=== PATIENT | female | born 1985 | race Caucasian/White ===

== ENCOUNTER 2018-11-02 17:45 | Outpatient (CLI) | payer OTHER ==
[~2018-11-02] VITALS: Ht 172.7 cm; Wt 105.7 kg
[~2018-11-02 17:45] MED LIST: DOCU100C37 PO; IBUP-1780 PO; LABE200T7 PO; OXYC-465 PO; PREN1TAB76 PO; RANI150T46 PO; [UNRECOGNIZED DRUG - OTHER]; aldomet PO
[2018-11-02] MEDS ORDERED: [UNRECOGNIZED DRUG - OTHER] PO (18:21)
[2018-11-02] MEDS ORDERED: RANI150T46 PO (18:23)
[2018-11-02] MEDS ORDERED: ONDA8TAB6 PO (18:23)
[2018-11-02] MEDS ORDERED: CHOL100045 PO (18:23)
== END 2018-11-02 18:46 | disposition home or self-care (01) ==
LOC: WSo 17:45 → LDRP 17:45 → WSo 18:46
PROVIDERS: ATTEND Obstetrics & Gynecology
DX: O36.8120 Decreased fetal movements, second trimester, not applicable or unspecified (principal); Z3A.20 20 weeks gestation of pregnancy
CPT/HCPCS: 99212

== ENCOUNTER → 2019-02-17 | Outpatient (CLI) | payer OTHER ==
[~2019-02-17] MED LIST changes: +CHOL100045 PO; +ONDA8TAB6 PO; +[UNRECOGNIZED DRUG - OTHER] PO
== END ==
LOC: LABNPT 14:52
PROVIDERS: ATTEND Obstetrics & Gynecology
DX: O14.03 Mild to moderate pre-eclampsia, third trimester (principal)
CPT/HCPCS: 82570; 84156

== ENCOUNTER 2019-02-24 17:19 | Inpatient (IN) | payer OTHER ==
[~2019-02-24] VITALS: Ht 172.7 cm; Wt 108.4 kg
[2019-02-24] VITALS (7 sets, daily range): BP systolic 127–143; BP diastolic 76–83
--- NOTE | 2019-02-24 17:15 | NUR ---
APRYL LEAL presented to unit via ambulatory from office, accompanied by , with c/o CONTRACTIONS. APRYL LEAL weighed, gowned, voided, and to bed. EFHM and TOCO applied, VS taken. APRYL LEAL oriented to bed controls, call light, TV, heat, and A/C controls.
--- NOTE | 2019-02-24 17:35 | NUR ---
DR SIMENTAL CALLED BY THIS RN WITH PT REPORT. PT CO FEELING UNCOMFORTABLE WITH UC AND CONSTANT PRESSURE IN GENERAL. PT HAD BEEN SVE IN OFFICE AND WAS CLOSED. PT ABD TENDER TO TOUCH. THIS RN REPORT UC PATTERN, REACTIVE FHT. ORDERS RECEIVED FOR IV, CMP,CBC,LDH, START D5LR AT 150.
--- NOTE | 2019-02-24 17:40 | NUR ---
THIS RN BUSY WITH OTHER PT. REPORT GIVEN TO ADELITA THOMAS. MARTHA THOMAS TAKE OVER CARE ON PT AT THIS TIME.
[2019-02-24] MEDS ORDERED: D5 LR IV SOLUTION 1,000 ML IV ONE (17:41)
[2019-02-24] MEDS ORDERED: D5 LR IV SOLUTION 1,000 ML IV SCH ×2 (17:45→19:35)
[2019-02-24 18:17] LABS: BASOPHILS % (AUTO) 0 % (0-10); EOSINOPHILS # (AUTO) 0.1 10^3/uL (0.0-0.3); EOSINOPHILS % (AUTO) 1 % (0-10); HEMATOCRIT 37 % (35-52); HEMOGLOBIN 12.3 G/DL (11.5-16.0); LYMPHOCYTES # (AUTO) 1.8 X 10^3 (1.0-4.0); LYMPHOCYTES % (AUTO) 20 % (12-44); MEAN CORPUSCULAR HEMOGLOBIN 31 PG (25-34); MEAN CORPUSCULAR HGB CONC 33 G/DL (32-36); MEAN CORPUSCULAR VOLUME 94 FL (80-99); MEAN PLATELET VOLUME 12.4 FL (7.4-10.4); MONOCYTES # (AUTO) 0.6 X 10^3 (0.0-1.0); MONOCYTES % (AUTO) 7 % (0-12); NEUTROPHILS # (AUTO) 6.3 X 10^3 (1.8-7.8); NEUTROPHILS % (AUTO) 72 % (42-75); PLATELET COUNT 269 10^3/uL (130-400); RED CELL DISTRIBUTION WIDTH 13.3 % (10.0-14.5); WHITE BLOOD COUNT 8.7 10^3/uL (4.3-11.0)
--- NOTE | 2019-02-24 18:31 | History & Physical ---
History and Physical Date Seen by Provider: Feb 24, 2019 Time Seen by Provider: 18:27 This patient is a 33-year-old white female who was previously delivery was a . Her is complicated by gestational diabetes that is well controlled with diet. Her blood pressures have been elevated however she has not reached that threshold for definitive diagnosis of preeclampsia. She complains of severe abdominal pain. She is having somewhat irregular contractions. She denies rupture membranes or bleeding. Allergies are none Medications are vitamins Medical social and surgical histories are per the antepartum record HEENT exam is normal patient does appear uncomfortable Neck is supple no lymphadenopathy no thyromegaly Abdomen is gravid soft. It is exquisitely tender across the fundus and lower abdomen Show no clubbing or cyanosis. There is fairly notable pretibial pitting edema. There is no Homans sign. Pelvic exam is deferred Laboratory Tests Test 02/24/19 18:05 Range/Units White Blood Count 8.7 4.3-11.0 10^3/uL Red Blood Count 3.97 L 4.35-5.85 10^6/uL Hemoglobin 12.3 11.5-16.0 G/DL Hematocrit 37 35-52 % Mean Corpuscular Volume 94 80-99 FL Mean Corpuscular Hemoglobin 31 25-34 PG Mean Corpuscular Hemoglobin Concent 33 32-36 G/DL Red Cell Distribution Width 13.3 10.0-14.5 % Platelet Count 269 130-400 10^3/uL Mean Platelet Volume 12.4 H 7.4-10.4 FL Neutrophils (%) (Auto) 72 42-75 % Lymphocytes (%) (Auto) 20 12-44 % Monocytes (%) (Auto) 7 0-12 % Eosinophils (%) (Auto) 1 0-10 % Basophils (%) (Auto) 0 0-10 % Neutrophils # (Auto) 6.3 1.8-7.8 X 10^3 Lymphocytes # (Auto) 1.8 1.0-4.0 X 10^3 Monocytes # (Auto) 0.6 0.0-1.0 X 10^3 Eosinophils # (Auto) 0.1 0.0-0.3 10^3/uL Basophils # (Auto) 0.0 0.0-0.1 10^3/uL UA showed specific gravity 1.030. There was protein noted monitor shows contractions every 2-6 minutes Assessment and plan 36-6/7 weeks' gestation patient may be in early labor who has had a previous . She also is diabetic and abnormal abdominal exam. She is being hydrated. Her white blood cell count was normal. We will continue observation with the hydration if her symptoms significantly improved and we will continue observation through the night. If she does not show improvement with likely would proceed with repeat . 36-6/7 weeks' gestation with previous , gestational diabetes, severe abdominal pain Allergies and Home Medications Allergies Coded Allergies: No Known Drug Allergies (Unverified , 08/17/15) Home Medications Cholecalciferol (Vitamin D3) 1,000 Unit Tablet, 1,000 UNIT PO DAILY, (Reported) Docusate Sodium 100 Mg Capsule, 100 MG PO BID Prescribed by: MASTER ARREOLA on 10/08/15 0954 Ondansetron HCl 8 Mg Tablet, 8 MG PO Q20M, (Reported) Ranitidine HCl 150 Mg Tablet, 150 MG PO BID PRN, (Reported) [bariatric mv] , 1 TAB PO DAILY, (Reported) Patient Home Medication List Home Medication List Reviewed: Yes MASTER SIMENTAL MD Feb 24, 2019 18:31
[2019-02-24 18:35] LABS: LYMPHOCYTES % (MANUAL) 27 %; MONOCYTES % (MANUAL) 3 %; NEUTROPHILS % (MANUAL) 70 %; RBC MORPH NORMAL
[2019-02-24 18:40] LABS: ALANINE AMINOTRANSFERASE 13 U/L (0-55); ALBUMIN 3.4 GM/DL (3.2-4.5); ALKALINE PHOSPHATASE 118 U/L (40-136); BILIRUBIN,TOTAL 0.5 MG/DL (0.1-1.0); BUN/CREATININE RATIO 15; CALCIUM 9.2 MG/DL (8.5-10.1); CARBON DIOXIDE 16 MMOL/L (21-32); CHLORIDE 110 MMOL/L (98-107); CREATININE SERUM 0.68 MG/DL (0.60-1.30); GFR ESTIMATED > 60; GLUCOSE 107 MG/DL (70-105); POTASSIUM 3.6 MMOL/L (3.6-5.0); SODIUM 137 MMOL/L (135-145); TOTAL PROTEIN 6.5 GM/DL (6.4-8.2)
--- NOTE | 2019-02-24 19:10 | NUR ---
PT REPORT GIVEN TO MARIA DOLORES RN. MARTHA THOMAS IN OR WITH ANOTHER PT.
--- NOTE | 2019-02-24 19:26 | NUR ---
DR SIMENTAL AT BEDSIDE TO EVALUATE PT. THIS RN GIVES UPDATE REPORT ON LABS.
[2019-02-24] MEDS ORDERED: METOCLOPRAMIDE INJ 10 MG/2 ML (REGLAN) ONE (19:35)
[2019-02-24] MEDS ORDERED: CITRIC ACID/SOB CIT (BICITRA) 30 ML UDC ONE (19:35)
[2019-02-24] MEDS ORDERED: ceFAZolin 2 GM IV Premixed 50 ML ONE (19:36)
[2019-02-24] MEDS ORDERED: LACTATED RINGERS 1,000 ML IV ONE (19:36)
[2019-02-24] MEDS ORDERED: FAMOTIDINE 20MG/2ML IV (PEPCID) ONE (19:36)
[2019-02-24] MEDS ORDERED: OXYTOCIN/NORMAL SALINE 500 ML IV SCH (19:38)
--- NOTE | 2019-02-24 19:40 | NUR ---
LR BOLUS INITIATED. ANESTHESIA AT BEDSIDE.
[2019-02-24] MEDS ORDERED: ONDANSETRON 4 MG/2 ML (SDV) Z0FRAN IVP PRN (19:45)
[2019-02-24] MEDS ORDERED: TETANUS,DIPTH,PERTUSS P/F (BOOSTRIX) 0.5 ML VIAL IM SCH (19:45)
[2019-02-24] MEDS ORDERED: metroNIDAZOLE 500MG/100ML IVPB 100 ML IV ONE (19:45)
[2019-02-24] MEDS ORDERED: ceFAZolin INJECTION 2,000 MG in WATER (STERILE) FOR INJECTION 10 ML IV ONE (19:45)
[2019-02-24] MEDS ORDERED: BUTORPHANOL INJ 2 MG/ML (STADOL) VIAL IV PRN (19:45)
[2019-02-24] MEDS ORDERED: MEASLES,MUMPS,RUBELLA 1 EA INJ SC SCH (19:45)
[2019-02-24] MEDS ORDERED: OXYC1TAB12 PO (19:47)
[2019-02-24] MEDS ORDERED: IBUP-1780 PO (19:47)
[2019-02-24] MEDS ORDERED: DOCU100C37 PO (19:47)
[2019-02-24] MEDS ORDERED: fentaNYL INJECTION 100 MCG/2 ML AMP ONE (19:49)
[2019-02-24] MEDS ORDERED: ONDANSETRON 4 MG/2 ML (SDV) Z0FRAN ONE (19:49)
[2019-02-24] MEDS ORDERED: PHENYLEPHRINE 100 MCG/ML 10 ML (ANESTHESIA) SYR ONE (19:49)
--- NOTE | 2019-02-24 19:49 | Discharge Instructions ---
Discharge Instructions Discharge Medications New, Converted or Re-Newed RX: RX on Chart Patient Instructions Patient Instructions: As directed Return to The Hospital For: DIRECTED Activity & Diet Discharge Diet: No Restrictions Activity as Tolerated: No Orders-Post D/C & Referrals Follow Up Appt: RTC 1 week for incision check. Call to make follow up appt. for patient in 4 weeks. Wound Care: Remove mustapha, apply benzoin and steri strips. Activity Per routine post instructions. Diet as tolerated Patient may shower or tub bathe as desired. Continue home meds MASTER SIMENTAL MD Feb 24, 2019 19:49
[2019-02-24] MEDS ORDERED: BUPIVACAINE SPINAL 0.75% (SENSORCAINE) 2 ML AMP ONE (19:52)
--- NOTE | 2019-02-24 19:55 | NUR ---
PREOP MEDS GIVEN PER ORDERS.
--- NOTE | 2019-02-24 20:05 | NUR ---
EFM D/C'D. PT ALLOWED TO VOID AND THEN AMBULATORY TO OR AT THIS TIME. CARES TO OR CREW.
[2019-02-24] MEDS ORDERED: BUPIVACAINE 0.5% 30 ML (SENSORCAINE) VIAL ONE (21:12)
[2019-02-24] MEDS ORDERED: diphenhydrAMINE 50 MG/ML INJ (BENADRYL) IV PRN (21:30)
[2019-02-24] MEDS ORDERED: NALOXONE 0.4 MG/ML 1 ML (NARCAN) VIAL IV PRN (21:30)
[2019-02-24] MEDS ORDERED: ONDANSETRON 4 MG/2 ML (SDV) Z0FRAN IV PRN (21:30)
[2019-02-24] MEDS: KETOROLAC 30 MG/ML VIAL IV SCH (21:38)
[2019-02-24] MEDS: DOCUSATE SODIUM 100 MG (COLACE) CAP PO SCH (22:10)
--- NOTE | 2019-02-24 22:10 | NUR ---
PT TO 306 BY BED FROM RECOVERY. PT IN STABLE CONDITION. REPORT RECEIVED AND CARES RESUMED BY THIS NURSE.
[2019-02-25] MEDS ORDERED: METOCLOPRAMIDE INJ 10 MG/2 ML (REGLAN) IV ONE
[2019-02-25] MEDS ORDERED: CITRIC ACID/SOB CIT (BICITRA) 30 ML UDC PO ONE
[2019-02-25] MEDS ORDERED: LACTATED RINGERS 1,000 ML IV SCH
[2019-02-25] MEDS ORDERED: FAMOTIDINE 20MG/2ML IV (PEPCID) IVP ONE
[2019-02-25] MEDS: oxyCODONE/APAP 10/325MG (PERCOCET 10) TABLET PO PRN ×5 (00:25→21:07)
[2019-02-25] MEDS: KETOROLAC 30 MG/ML VIAL IV SCH (01:45)
--- NOTE | 2019-02-25 02:11 | OPERATIVE REPORT ---
DATE OF SERVICE: 02/24/2019 PREOPERATIVE DIAGNOSIS: A 36 and 6/7 weeks' gestation with labor, polyhydramnios and severe abdominal pain. POSTOPERATIVE DIAGNOSIS: A 36 and 6/7 weeks' gestation with labor, polyhydramnios and severe abdominal pain with partial uterine incision separation. OPERATIVE PROCEDURE: Repeat low transverse delivery of a viable male with Apgars of 6 and 8 at 1 and 5 minutes respectively, weight 6 pounds 6 ounces, time of 2040 and a cord blood pH that is pending. OPERATIVE DESCRIPTION: With the patient in the supine position under satisfactory spinal anesthesia, she was prepped and draped in usual fashion for abdominal surgery. Burton catheter was placed in the urinary bladder. A Pfannenstiel incision made through the skin with a scalpel through the patient's previous Pfannenstiel incision scar. The abdomen was entered in the usual manner. Bladder retractor placed into position and a clean scalpel was used to make a 4 cm hysterotomy incision transversely across the lower uterine segment in an area that was almost paperthin comprised primarily of peritoneum and membranes. The membranes were bulging up through the myometrium. Membranes were ruptured in the process. Copious clear fluid was released. The incision was extended transversely by a blunt dissection. A vigorous viable male was delivered via the uterine incision with fundal pressure. The infant had Apgars and stats as noted above. Infant had a single nuchal cord that was easily released and then the delivery completed. The was bulb suctioned on delivery of the head and again on completion of delivery. Umbilical cord was doubly clamped and severed and the passed to the pediatric nurse in attendance for delivery. Cord bloods were obtained. The placenta delivered spontaneously Velasquez. It was normal with a 3-vessel cord. It was sent to pathology for permanent section. Uterus was exteriorized and interior wiped clean with a wet laparotomy sponge. Uterine incision was closed with running locked suture of 2-0 Vicryl. Hemostasis was complete. The uterus was returned to abdominal cavity. All blood, clot and debris removed from the abdominal cavity. With sponge and needle counts correct, hemostasis assured, the anterior parietal peritoneum was closed with running suture of 2-0 Vicryl. Rectus muscles were closed with that suture as well. The rectus fascia was closed with 2-0 Vicryl, subcutaneous tissue with 2-0 Vicryl and the skin was stapled. Sponge and needle counts were correct on completion of the procedure. Estimated blood loss was around 700 mL. The patient tolerated the procedure well and was transferred to the recovery room in stable condition. The infant had been taken stable to the full term nursery under the care of the pediatric nurse. Job ID: [id number] DocumentID: [id number] Dictated Date: 02/24/2019 21:20:59 Ruby Engineer Date: 02/25/2019 02:10:47 Dictated By: MASTER SIMENTAL MD MTDD
[2019-02-25 02:50] VITALS: BP 153/96
--- NOTE | 2019-02-25 07:40 | NUR ---
DR. SIMENTAL HERE TO SEE PT.
[2019-02-25] MEDS: DOCUSATE SODIUM 100 MG (COLACE) CAP PO SCH ×2 (07:58→19:51)
[2019-02-25 08:00] VITALS: BP 146/84
[2019-02-25] MEDS ORDERED: IBUPROFEN 800 MG (MOTRIN) TAB PO SCH (08:00)
--- NOTE | 2019-02-25 08:00 | NUR ---
A.M. ASSESSMENT COMPLETED. VSS. AND S.O. AT BEDSIDE.
--- NOTE | 2019-02-25 08:05 | Progress Note-Standard ---
Standard Progress Note Progress Notes/Assess & Plan Date Seen by a Provider: Feb 25, 2019 Time Seen by a Provider: 08:04 Progress/Assessment & Plan This patient is without complaint. She is ambulating, voiding, tolerating liquids well has good pain control. Patient denies chest pain, denies shortness of breath, denies nausea vomiting, denies headache. Vital Signs 02/24/19 02/25/19 23:10 02:50 Temp 98.7 Pulse 74 Resp 18 B/P (MAP) 153/96 (115) Pulse Ox 99 O2 Delivery Room Air Signs are stable. Patient afebrile. Fundus is firm below the umbilicus and nontender. The surgical incision is clean dry and intact. Extremities show no clubbing cyanosis. There is no Homans sign. Assessment and plan postoperative day number 1 status post repeat delivery at 36-6/7 weeks' gestation. Plan is for routine convalescence. MASTER SIMENTAL MD Feb 25, 2019 08:05
--- NOTE | 2019-02-25 09:03 | Anesthesia-Regional Post-Op ---
Regional Patient Condition Mental Status: Alert, Oriented x3 Circulation: Same as Pre-Op Headache: Absent Sensation: Full Recovery Motor Block: Absent Post Op Complications Complications None Follow Up Care/Instructions Patient Instructions None needed. Anesthesia/Patient Condition Patient is doing well, no complaints, stable vital signs, no apparent adverse anesthesia problems. No complications reported per nursing. MATTIE COPELAND CRNA Feb 25, 2019 09:03
--- NOTE | 2019-02-25 10:00 | NUR ---
CONTINUES TO CARE FOR IN ROOM. PT HAS AMBULATED IN THE HALLWAY PUSHING INFANT IN CRIB. MOVES WELL.
[2019-02-25 12:00] VITALS: BP 139/88
--- NOTE | 2019-02-25 13:00 | NUR ---
CONTINUES TO DO WELL. CARING FOR INFANT IN ROOM.
[2019-02-25] MEDS: ACETAMINOPHEN 500 MG TAB (TYLENOL) PO PRN ×2 (15:10→23:11)
--- NOTE | 2019-02-25 16:00 | NUR ---
PT STATES SHE IS FEELING BETTER AND TOOK A NAP EARLIER. PLANS TO HAVE STORK MEAL TONIGHT.
[2019-02-25 17:00] VITALS: BP 121/87
--- NOTE | 2019-02-25 18:00 | NUR ---
AMBULATING IN THE HALLWAY WITH S.O. AND IN CRIB.
[2019-02-25 20:00] VITALS: BP 131/81
[2019-02-26 02:02] VITALS: BP 149/88
[2019-02-26 07:50] VITALS: BP 139/87
--- NOTE | 2019-02-26 07:50 | Progress Note-Standard ---
Standard Progress Note Progress Notes/Assess & Plan Date Seen by a Provider: Feb 26, 2019 Time Seen by a Provider: 07:49 Progress/Assessment & Plan This patient is without complaint. She is ambulating, voiding, tolerating liquids well has good pain control. Patient denies chest pain, denies shortness of breath, denies nausea vomiting, denies headache. Vital Signs 02/24/19 02/25/19 23:10 02:50 Temp 98.7 Pulse 74 Resp 18 B/P (MAP) 153/96 (115) Pulse Ox 99 O2 Delivery Room Air Signs are stable. Patient afebrile. Fundus is firm below the umbilicus and nontender. The surgical incision is clean dry and intact. Extremities show no clubbing cyanosis. There is no Homans sign. Assessment and plan postoperative day number 1 status post repeat delivery at 36-6/7 weeks' gestation. Plan is for routine convalescence. February 26, 2019 Patient is without complaint. She is ambulating, voiding, tolerating oral intake well has good pain control and is requesting discharge home. Vital Signs Date Time Temp Pulse Resp B/P (MAP) Pulse Ox O2 Delivery O2 Flow Rate FiO2 02/26/19 02:02 97.3 61 18 149/88 (108) 100 Room Air 02/25/19 20:00 98.1 87 18 131/81 (98) 97 Room Air 02/25/19 17:00 98.2 71 18 121/87 (98) 100 Room Air 02/25/19 12:00 97.9 64 18 139/88 (105) 100 Room Air 02/25/19 08:00 98.3 82 18 146/84 (104) 99 Room Air I & O 02/26/19 06:59 Intake Total 2500 ml Output Total 3150 ml Balance -650 ml Vital signs are stable. Patient is afebrile. Blood pressures are acceptable. Fundus is firm below the umbilicus and nontender. The surgical incision is clean dry and intact. Extremities show no clubbing cyanosis. There is no Homans sign. Assessment and plan postoperative day number 2 status post repeat delivery at 36-6/7 weeks' gestation. Plan is for discharge home with follow-up in clinic Final Diagnosis 36-6/7 weeks' gestation repeat delivery MASTER SIMENTAL MD Feb 26, 2019 07:50
[2019-02-26] MEDS: ACETAMINOPHEN 500 MG TAB (TYLENOL) PO PRN (08:20)
[2019-02-26] MEDS: DOCUSATE SODIUM 100 MG (COLACE) CAP PO SCH (08:20)
--- NOTE | 2019-02-26 08:20 | NUR ---
TO BEDSIDE. ASSISTED INTO BED FOR STAPLE REMOVAL. VEENA REMOVED, BENZOCAINE AND STERISTRIPS APPLIED TO INCISION. NO S/S OF INFECTION NOTED. SCANT BRIGHT RED BLOOD NOTED ON RIGHT EDGE OF INCISION AFTER STAPLE REMOVAL. REVIEWED S/S OF INFECTION WITH PATIENT AND INCISION CARE.
--- NOTE | 2019-02-26 10:08 | NUR ---
dismissal instructions given and verbalizes understanding. reviewed follow up appointments and dismissal Rx's. signature page signed, placed on chart.
--- NOTE | 2019-02-26 12:30 | NUR ---
pt ambulated to private vehicle with staff, infant and @ side. pt stable with no sx's of distress noted.
== END 2019-02-26 12:30 | disposition home or self-care (01) | DRG 786 ==
LOC: WSo 17:19 → LDRP 17:19 → WSo 17:27 → LDRP 18:00 → WSo 18:00 → WS 22:10
PROVIDERS: ADMIT Obstetrics & Gynecology; ATTEND Obstetrics & Gynecology
PROC: 10D00Z1 Extraction of Products of Conception, Low, Open Approach (ICD-10-PCS; principal; 2019-02-24 20:08)
DX: O90.0 Disruption of cesarean delivery wound (principal); O34.211 Maternal care for low transverse scar from previous cesarean delivery; O24.420 Gestational diabetes mellitus in childbirth, diet controlled; O60.14X0 Preterm labor third trimester with preterm delivery third trimester, not applicable or unspecified; O40.3XX0 Polyhydramnios, third trimester, not applicable or unspecified; Z37.0 Single live birth; Z3A.36 36 weeks gestation of pregnancy
CPT/HCPCS: 36415; 80053; 83615; 85007; 85027; 88307; 99212